=== PATIENT | female | born 2000 | race Caucasian/White ===

== ENCOUNTER 2021-03-21 00:55 | Outpatient (CLI) | payer BC, OTHER ==
[~2021-03-21] VITALS: Ht 160 cm; Wt 49.8 kg
[2021-03-21] MEDS ORDERED: PREN29CH2 PO (01:08)
[2021-03-21] MEDS ORDERED: HOME MED LIST COMPLETE! XX SCH (01:10)
[2021-03-21 01:22] VITALS: BP 103/65
[2021-03-21 02:25] LABS: HEMATOCRIT 33.6 % (36.0-47.0); HEMOGLOBIN 11.5 g/dl (12.0-15.5); MEAN CORPUSCULAR HEMOGLOBIN 30.4 pg (27.0-33.0); MEAN CORPUSCULAR HGB CONC 34.2 g/dl (32.0-36.5); MEAN CORPUSCULAR VOLUME 88.9 fl (80.0-96.0); PLATELET COUNT, AUTOMATED 149 10^3/uL (150-450); RED BLOOD COUNT 3.78 10^6/uL (4.00-5.40); WHITE BLOOD COUNT 13.2 10^3/uL (4.0-10.0)
[2021-03-21 02:27] LABS: APPEARANCE, URINE HAZY (CLEAR)
[2021-03-21 02:28] LABS: BILIRUBIN, URINE AUTO NEGATIVE (NEGATIVE); BLOOD, URINE BLOOD 1+ (NEGATIVE); COLOR, URINE YELLOW (YELLOW); GLUCOSE, URINE (UA) AUTO NEGATIVE (NEGATIVE); KETONE, URINE AUTO NEGATIVE (NEGATIVE); LEUKOCYTE ESTERASE, URINE AUTO NEGATIVE (NEGATIVE); NITRITE, URINE AUTO NEGATIVE (NEGATIVE); PROTEIN, URINE AUTO NEGATIVE (NEGATIVE); SPECIFIC GRAVITY URINE AUTO 1.014 (1.002-1.035)
[2021-03-21 02:29] LABS: BACTERIA, URINE AUTO 1+ (NEGATIVE); RBC, URINE AUTO 4 /HPF (0-3); WBC, URINE AUTO 6 /HPF (0-3)
[2021-03-21 02:43] VITALS: BP 101/58
[2021-03-21 02:54] LABS: ALBUMIN 2.8 GM/DL (3.2-5.2); ALT/SGPT 13 U/L (12-78); BILIRUBIN,TOTAL 0.4 MG/DL (0.2-1.0); BLOOD UREA NITROGEN 5 MG/DL (7-18); CALCIUM LEVEL 8.3 MG/DL (8.5-10.1); CARBON DIOXIDE LEVEL 25 MEQ/L (21-32); CHLORIDE LEVEL 106 MEQ/L (98-107); CREATININE FOR GFR 0.45 MG/DL (0.55-1.30); GLOMERULAR FILTRATION RATE > 60.0 (>60); GLUCOSE, FASTING 88 MG/DL (70-100); SODIUM LEVEL 139 MEQ/L (136-145); TOTAL PROTEIN 6.3 GM/DL (6.4-8.2)
--- NOTE | 2021-03-21 05:22 | REPVR ---
PROCEDURE INFORMATION: Exam: US Abdomen, Limited; Appendix Exam date and time: 03/21/2021 3:30 AM Age: 21 years old Clinical indication: Pelvic pain and other: Rlq; Additional info: Rlq pain, ? appendicitis, ? ovarian cyst TECHNIQUE: Imaging protocol: US abdomen. Real time ultrasound with image documentation. Limited exam focused on the appendix. COMPARISON: No relevant prior studies available. FINDINGS: Appendix: Nonvisualization of the appendix. Ovaries: Right ovary is not visualized. IMPRESSION: Nonvisualization of the appendix. If there is high clinical concern for acute appendicitis MRI of the abdomen and pelvis is suggested for further characterization. Electronically signed by: Juan Carlos Avery On 03/21/2021 05:21:25 AM
[2021-03-21 05:41] VITALS: BP 97/56
== END 2021-03-21 05:42 | disposition home or self-care (01) ==
LOC: M LDO 00:55
PROVIDERS: ATTEND Advanced Practice Midwife
DX: O26.892 Other specified pregnancy related conditions, second trimester (principal); R10.31 Right lower quadrant pain; Z3A.20 20 weeks gestation of pregnancy

== ENCOUNTER 2021-08-09 21:11 | Inpatient (IN) | payer BC ==
[~2021-08-09] VITALS: Ht 157.5 cm; Wt 60.2 kg
[~2021-08-09 21:11] MED LIST: PREN29CH2 PO
[2021-08-09 23:12] LABS: HEMATOCRIT 32.2 % (36.0-47.0); HEMOGLOBIN 9.7 g/dl (12.0-15.5); MEAN CORPUSCULAR HEMOGLOBIN 22.4 pg (27.0-33.0); MEAN CORPUSCULAR HGB CONC 30.1 g/dl (32.0-36.5); MEAN CORPUSCULAR VOLUME 74.4 fl (80.0-96.0); PLATELET COUNT, AUTOMATED 230 10^3/uL (150-450); RED BLOOD COUNT 4.33 10^6/uL (4.00-5.40); WHITE BLOOD COUNT 12.2 10^3/uL (4.0-10.0)
[2021-08-09] MEDS ORDERED: CARBOPROST TROMETHAMINE 250 MCG/ML AMP IM PRN (23:20)
[2021-08-09] MEDS ORDERED: OXYTOCIN DRIP 30 UNITS in IV 1 EA IV PRN (23:20)
[2021-08-09] MEDS ORDERED: LACTATED RINGER'S 1000 ML IV STA (23:20)
[2021-08-09] MEDS ORDERED: PENICILLIN G POTASSIUM IV 5 MU in D5W MINI-BAG PLUS 100 ML IV STA (23:20)
[2021-08-09] MEDS ORDERED: LIDOCAINE 1% MDV 20ML VIAL INFIL PRN (23:20)
[2021-08-09] MEDS ORDERED: METHYLERGONOVINE MALEATE 0.2 MG/ML VIAL (J2210) IM PRN (23:20)
[2021-08-09] MEDS ORDERED: TRANEXAMIC ACID INJection 1,000 MG in NS 100 ML IV PRN (23:20)
[2021-08-10] VITALS (41 sets, daily range): BP systolic 107–162; BP diastolic 58–91
[2021-08-10 00:43] LABS: HEPATITIS C VIRUS ABY INDEX < 0.0 INDEX (<0.8); HIV 1&2 SCREEN CENTAUR NEGATIVE (NEGATIVE)
[2021-08-10] MEDS: PENICILLIN G POTASSIUM IV 2.5 MU in IV 1 EA IV SCH ×4 (04:00→16:34)
[2021-08-10] MEDS ORDERED: OXYTOCIN 30 UNITS IN 0.9% NaCl 500ML IV BAG (J2590) As Ordered ONE (05:38)
[2021-08-10] MEDS ORDERED: OXYTOCIN DRIP 30 UNITS in IV 1 EA IV SCH ×2 (10:30→21:35)
[2021-08-10] MEDS ORDERED: LR 1,000 ML IV SCH (11:00)
[2021-08-10] MEDS ORDERED: PROMETHAZINE INJ 25 MG/ML VIAL (J2550) IV PRN (13:55)
[2021-08-10] MEDS ORDERED: BUTORPHANOL 2 MG/ML INJ (J0595) IV ONE (14:15)
[2021-08-10] MEDS ORDERED: FENTANYL 2MCG/ML ROPIVACAINE 0.2% IN 0.9% NACL 100ML IVBAG As Ordered ONE (15:39)
[2021-08-10] MEDS ORDERED: ONDANSETRON 4MG/2ML VIAL IV PRN (16:25)
[2021-08-10] MEDS ORDERED: EPIDURAL/PCA KEYS XX PRN (16:25)
[2021-08-10] MEDS ORDERED: NALOXONE INJ 0.4MG/1ML VIAL (J2310 PER 1MG) IV PRN (16:25)
[2021-08-10] MEDS ORDERED: LACTATED RINGER'S 1000 ML IV PRN (16:25)
[2021-08-10] MEDS ORDERED: EPIDURAL COMMENT XX SCH (16:25)
[2021-08-10] MEDS ORDERED: FENTANYL/ROPIVACAINE/NACL BAG 100 ML EPIDURAL SCH (16:25)
[2021-08-10] MEDS ORDERED: ePHEDrine SULFATE 25 MG/5 ML(5MG/ML) SYRINGE IV PRN (16:25)
[2021-08-10] MEDS ORDERED: REFRIGERATOR IV KEYS XX PRN (16:25)
[2021-08-10] MEDS ORDERED: MEASLES,MUMPS,RUBELLA VACCINE INJ (MMR-II) (90707) SC SCH (21:35)
[2021-08-10] MEDS ORDERED: ACETAMINOPHEN 500 MG TAB PO PRN (21:35)
[2021-08-10] MEDS ORDERED: IBUPROFEN 800 MG TAB PO PRN (21:35)
[2021-08-10] MEDS ORDERED: MOM 30ML SUSPENSION UDC PO PRN (21:35)
[2021-08-10] MEDS ORDERED: METHYLERGONOVINE MALEATE 0.2 MG TAB PO PRN (21:35)
[2021-08-10] MEDS ORDERED: DOCUSATE SODIUM 100MG CAPSULE PO PRN (21:35)
[2021-08-10] MEDS ORDERED: DIBUCAINE 1% OINTMENT 30GM TOP PRN (21:35)
[2021-08-10] MEDS ORDERED: IBUPROFEN 600MG TAB PO PRN (21:35)
[2021-08-10] MEDS ORDERED: RHOGAM 300 MCG (1500 IU) INJ (J2790) IM SCH (21:35)
[2021-08-10] MEDS ORDERED: ACETAMINOPHEN TAB 650MG DOSE (2X325MG) PO PRN (21:35)
[2021-08-11 06:00] VITALS: BP 104/59
[2021-08-11] MEDS: PRENATAL VITAMINS CHEWABLE TABLET PO SCH (08:40)
[2021-08-11 18:00] VITALS: BP 109/64
[2021-08-12 05:53] VITALS: BP 110/75
[2021-08-12] MEDS: PRENATAL VITAMINS CHEWABLE TABLET PO SCH (08:31)
[2021-08-12] MEDS ORDERED: BOOSTRIX/ADACEL VACCINE (DIPHTH/PERTUSS/ACELL/TETANUS) 0.5ML SYR IM ONE (09:30)
[2021-08-12] MEDS ORDERED: IBUP80TA PO (11:45)
[2021-08-12] MEDS ORDERED: ACET-683 PO (11:45)
== END 2021-08-12 15:10 | disposition home or self-care (01) | DRG 560 ==
LOC: M LDO 21:11 → M LDI 22:31 → M OBS 08-10 22:52
PROVIDERS: ADMIT Advanced Practice Midwife; ATTEND Advanced Practice Midwife
PROC: 10E0XZZ Delivery of Products of Conception, External Approach (ICD-10-PCS; principal; 2021-08-10)
PROC: 0HQ9XZZ Repair Perineum Skin, External Approach (ICD-10-PCS; 2021-08-10)
DX: O48.0 Post-term pregnancy (principal); O70.0 First degree perineal laceration during delivery; Z37.0 Single live birth; Z3A.40 40 weeks gestation of pregnancy; O09.30 Supervision of pregnancy with insufficient antenatal care, unspecified trimester; Z88.8 Allergy status to other drugs, medicaments and biological substances